=== PATIENT | male | born 1965 | race Hispanic/Latino ===

== ENCOUNTER 2016-10-07 17:30 | Emergency (ER) | payer MEDICAID ==
[2016-10-07 17:30] VITALS: BMI 29.1
[2016-10-07] MEDS ORDERED: Albuterol 0.083% Inhal Sol (2.5 mg/3 mL) UD INH STA (17:56)
[2016-10-07] MEDS ORDERED: Albuterol 0.083% Inhal Sol (2.5 mg/3 mL) UD ONE (17:56)
--- NOTE | 2016-10-07 17:56 | C.PDOC ---
History Of Present Illness A 51 year old male presents to the emergency room with complaints of productive cough and chest tightness for 5 days. Patient has a history of Asthma but doesn' t have Asthma medications. Patient also notes back pain from excessive coughing. Patient denies any fever, chills, nausea, vomiting, diarrhea, or any other complaints. Time Seen by Provider: 10/07/16 17:50 Chief Complaint (Nursing): Flu-like Symptoms History Per: Patient History/Exam Limitations: no limitations Onset/Duration Of Symptoms: Days (5) Current Symptoms Are (Timing): Still Present Associated Symptoms: Cough (Productive), Chest Pain (Tightness). denies: Fever Preciptating Factors: None Severity: Mild Past Medical History Reviewed: Historical Data, Nursing Documentation, Vital Signs Vital Signs: Last Vital Signs Temp 98.7 F 10/07/16 17:36 Pulse 93 H 10/07/16 17:36 Resp 16 10/07/16 17:36 BP 120/84 10/07/16 17:36 Pulse Ox 99 10/07/16 18:11 - Medical History PMH: Asthma, Gastritis, Gall Bladder Disease, Hypercholesterolemia Denies: Chronic Kidney Disease Surgical History: Appendectomy, Cholecystectomy - [facility] Procedures LAPAROSCOPIC CHOLECYSTECTOMY (07/29/13) SERUM TRANSFUSION NEC (07/29/13) Family History: States: Unknown Family Hx - Social History Hx Tobacco Use: No Hx Alcohol Use: Yes Hx Substance Use: No - Immunization History Hx Tetanus Toxoid Vaccination: No Hx Influenza Vaccination: No Hx Pneumococcal Vaccination: No Review Of Systems Except As Marked, All Systems Reviewed And Found Negative. Constitutional: Negative for: Fever, Chills Cardiovascular: Positive for: Chest Pain (Tightness) Respiratory: Positive for: Cough (Productive cough) Gastrointestinal: Negative for: Nausea, Vomiting, Diarrhea Musculoskeletal: Positive for: Back Pain (From excessive coughing) Physical Exam - Physical Exam Appears: Well, Non-toxic Skin: Normal Color, Warm, Dry Head: Atraumatic, Normacephalic Eye(s): bilateral: Normal Inspection Ear(s): Bilateral: Normal Nose: Normal, No Discharge Oral Mucosa: Moist Throat: Normal, No Erythema, No Exudate Neck: Normal ROM, Supple Cardiovascular: Rhythm Regular Respiratory: Normal Breath Sounds, No Rales, No Rhonchi, No Wheezing Gastrointestinal/Abdominal: Soft, No Tenderness, No Guarding, No Rebound Back: Normal Inspection, No CVA Tenderness, No Vertebral Tenderness Extremity: Normal ROM, No Tenderness, No Pedal Edema, No Calf Tenderness, No Swelling Neurological/Psych: Oriented x3, Normal Speech ED Course And Treatment O2 Sat by Pulse Oximetry: 99 Pulse Ox Interpretation: Normal Progress Note: Will give patient Albuterol & Motrin. Reevaluation Time: 18:38 Reassessment Condition: Improved Disposition Counseled Patient/Family Regarding: Diagnosis, Need For Followup, Rx Given - Disposition Referrals: [facility] [Outside] [facility] [Other] Disposition: HOME/ ROUTINE Disposition Time: 18:38 Condition: IMPROVED Prescriptions: Naproxen 500 mg PO BID #30 tab Benzonatate [Tessalon Perles] 200 mg PO TID PRN #15 sgl PRN Reason: Cough Albuterol HFA [Ventolin HFA 90 mcg/actuation (8 g)] 1 puff IH Q4 #1 inhaler Azithromycin [Zithromax] 250 mg PO DAILY #6 tab Instructions: Acute Bronchitis (ED), Asthma (ED) - Clinical Impression Clinical Impression: Bronchitis, Asthma exacerbation - Scribe Statement The provider has reviewed the documentation as recorded by the Nette Valdez Provider Scribe Attestation: All medical record entries made by the Abigailibjanuary were at my direction and personally dictated by me. I have reviewed the chart and agree that the record accurately reflects my personal performance of the history, physical exam, medical decision making, and the department course for this patient. I have also personally directed, reviewed, and agree with the discharge instructions and disposition.
[2016-10-07 18:42] VITALS: BP 118/77; PULSE 81; RESP 20; TEMP 100.1; O2SAT 95
== END 2016-10-07 18:44 | disposition home or self-care (01) ==
LOC: C.ER 17:30
DX: J45.901 Unspecified asthma with (acute) exacerbation (principal)

== ENCOUNTER 2016-12-09 17:59 | Emergency (ER) | payer MEDICAID ==
[2016-12-09 17:59] VITALS: BMI 29.1
[2016-12-09 18:38] VITALS: BP 122/80; PULSE 65; RESP 16; TEMP 97.7; O2SAT 97
--- NOTE | 2016-12-09 19:20 | C.PDOC ---
History Of Present Illness 51 year old male complains of sore throat for 4 days and right shoulder pain for 2 days. patient states shoulder pain started after heavy lifting when moving couch up 2 flights of stairs. He took Aleve with mild relief. Denies fever, cough, ear pain, chest pain, SOB, numbness or weakness Time Seen by Provider: 12/09/16 19:12 Chief Complaint (Nursing): Upper Extremity Problem/Injury History Per: Patient History/Exam Limitations: no limitations Onset/Duration Of Symptoms: Days (4) Current Symptoms Are (Timing): Still Present Past Medical History Reviewed: Historical Data, Nursing Documentation, Vital Signs Vital Signs: Last Vital Signs Temp 97.7 F 12/09/16 18:36 Pulse 65 12/09/16 18:36 Resp 16 12/09/16 18:36 BP 122/80 12/09/16 18:36 Pulse Ox 97 12/09/16 19:21 - Medical History PMH: Asthma, Gastritis, Gall Bladder Disease, Hypercholesterolemia Surgical History: Appendectomy, Cholecystectomy - [facility] Procedures LAPAROSCOPIC CHOLECYSTECTOMY (07/29/13) SERUM TRANSFUSION NEC (07/29/13) Family History: States: Unknown Family Hx - Social History Hx Tobacco Use: No Hx Alcohol Use: Yes Hx Substance Use: No - Immunization History Hx Tetanus Toxoid Vaccination: No Hx Influenza Vaccination: No Hx Pneumococcal Vaccination: No Review Of Systems Constitutional: Negative for: Fever, Weakness, Malaise ENT: Positive for: Throat Pain. Negative for: Ear Pain, Nose Congestion Cardiovascular: Negative for: Chest Pain, Palpitations Respiratory: Negative for: Cough, Shortness of Breath Gastrointestinal: Negative for: Vomiting, Abdominal Pain, Diarrhea Musculoskeletal: Positive for: Shoulder Pain. Negative for: Back Pain Skin: Negative for: Rash, Bruising Neurological: Negative for: Headache, Dizziness Physical Exam - Physical Exam Appears: Non-toxic, No Acute Distress Skin: Warm, Dry, No Diaphoretic Head: Atraumatic, Normacephalic Eye(s): bilateral: Normal Inspection, PERRL, EOMI Ear(s): Bilateral: Normal (no erythema) Nose: Normal Oral Mucosa: Moist Lips: Normal Appearing Teeth: Normal Dentition Throat: Erythema, No Exudate, No Drooling, No Mass Neck: Normal ROM Chest: Symmetrical Cardiovascular: Rhythm Regular, No Murmur Respiratory: Normal Breath Sounds, No Wheezing Extremity: Other (Right shoulder: painful abduction, no deformity, no swelling) Pulses: Right Radial: Normal Neurological/Psych: Oriented x3, Normal Speech ED Course And Treatment O2 Sat by Pulse Oximetry: 97 Medical Decision Making Medical Decision Making: Impression: sore throat and shoulder pain Plan: Ketorolac IM and Arm sling Reassess: Patient remained afebrile in no acute distress. Discussed results with patient. Rx given. Patient instructed to follow up with primary doctor or clinic, may return to if symptoms worsen or new symptoms arise. Disposition Counseled Patient/Family Regarding: Need For Followup, Rx Given - Disposition Referrals: Chandni Solano APN [Advanced Practice Nurse] - Disposition: HOME/ ROUTINE Disposition Time: 19:45 Condition: STABLE Additional Instructions: Vaya a toscano mdico o la clnica en 1-3 gaming sin falta, para mas evaluacin. [place] los medicamentos lucy indicado. Volver a la art de emergencia en cualquier momento si los sntomas persisten o empeoran. Prescriptions: Amoxicillin [Amoxil 500 mg Cap] 500 mg PO BID #14 cap Ibuprofen [Motrin] 600 mg PO Q8 #30 tab Instructions: Pharyngitis (ED), Shoulder Sprain (ED) Print Language: [place] ISLANDER - POA Present On Arrival: None - Clinical Impression Clinical Impression: Shoulder sprain, Pharyngitis - PA / [employer] REPRESENTATIVE / Resident Statement MD/DO has reviewed & agrees with the documentation as recorded.
== END 2016-12-09 19:31 | disposition home or self-care (01) ==
LOC: C.ER 17:59
DX: J02.9 Acute pharyngitis, unspecified (principal); S43.401A Unspecified sprain of right shoulder joint, initial encounter; X50.0XXA Overexertion from strenuous movement or load, initial encounter

== ENCOUNTER 2017-04-30 15:44 | Emergency (ER) | payer MEDICAID ==
[2017-04-30 15:44] VITALS: BMI 29.1
[2017-04-30 15:52] VITALS: BP 123/81; PULSE 71; RESP 18; TEMP 97.9; O2SAT 96
--- NOTE | 2017-04-30 16:04 | C.PDOC ---
History Of Present Illness 51 y/o male with PMHx OF Asthma presents to ED with complaints of fever, cough, throat pain and shortness of breath for 1 week. Patient also complaints of onset itchiness and redness with some discharge to eyes. Patient denies nausea, vomiting, chest pain or any other complaints at this time. Time Seen by Provider: 04/30/17 15:57 Chief Complaint (Nursing): Shortness Of Breath History Per: Patient History/Exam Limitations: no limitations Onset/Duration Of Symptoms: Days Current Symptoms Are (Timing): Still Present Location Of Pain: Throat Associated Symptoms: Fever, Cough, Nasal Congestion Past Medical History Reviewed: Historical Data, Nursing Documentation, Vital Signs Vital Signs: Last Vital Signs Temp 97.9 F 04/30/17 15:48 Pulse 71 04/30/17 15:48 Resp 18 04/30/17 15:48 BP 123/81 04/30/17 15:48 Pulse Ox 96 04/30/17 16:13 - Medical History PMH: Asthma, Gastritis, Gall Bladder Disease, Hypercholesterolemia, Hypothyroidism Surgical History: Appendectomy, Cholecystectomy - [facility] Procedures LAPAROSCOPIC CHOLECYSTECTOMY (07/29/13) SERUM TRANSFUSION NEC (07/29/13) Family History: States: No Known Family Hx - Social History Hx Tobacco Use: No Hx Alcohol Use: Yes Hx Substance Use: No - Immunization History Hx Tetanus Toxoid Vaccination: No Hx Influenza Vaccination: No Hx Pneumococcal Vaccination: No Review Of Systems Constitutional: Positive for: Fever ENT: Positive for: Nose Congestion, Throat Pain Cardiovascular: Negative for: Chest Pain Respiratory: Positive for: Cough, Shortness of Breath Gastrointestinal: Negative for: Nausea, Vomiting Skin: Negative for: Rash Physical Exam - Physical Exam Appears: Non-toxic, No Acute Distress Skin: Normal Color, Warm, Dry, No Rash Head: Atraumatic, Normacephalic Eye(s): bilateral: PERRL, EOMI, Other (Conjuctiva erythema L>R) Ear(s): Bilateral: Normal Nose: Normal, Other (congested nose) Oral Mucosa: Moist Throat: Normal, No Erythema, No Exudate, No Drooling, No Mass Neck: Normal ROM, Supple Cardiovascular: Rhythm Regular Respiratory: Normal Breath Sounds, No Rales, No Rhonchi, No Wheezing Extremity: Normal ROM, No Pedal Edema Neurological/Psych: Oriented x3 ED Course And Treatment O2 Sat by Pulse Oximetry: 96 (RA) Pulse Ox Interpretation: Normal Progress Note: Patient has no fever appears well in no distress. Symptoms c.w URI and no clinical signs of pneumonia. Will treat Zithromax, Rx was given. Disposition Counseled Patient/Family Regarding: Diagnosis, Need For Followup, Rx Given - Disposition Referrals: [facility] [Outside] Disposition: HOME/ ROUTINE Disposition Time: 16:35 Condition: STABLE Additional Instructions: Usted tiene carlos infeccin respiratoria superior. Wagon Wheel Tylenol o Motrin alternando cada 4-6 horas para Fever 100.4F o superior. Descansa y bonnie muchos lquidos. Puede usar un humidificador de vapor fresco o un vaporizador en la habitacin. Intente moriah el antihistamnico (Claritin, Hope, Zyrtec), descongestivo o medicamento para la tos segn sea necesario cada 6 a 8 horas. Buddy un seguimiento con toscano mdico o clnica principal en 1 semana para carlos evaluacin ms detallada. Prescriptions: Albuterol HFA [Ventolin HFA 90 mcg/actuation (8 g)] 1 puff IH Q4 #1 puff Instructions: Upper Respiratory Infection (ED), Conjunctivitis (ED) Forms: [facility] (Turkmen), Work Excuse Print Language: DIVEHI - POA Present On Arrival: None - Clinical Impression Clinical Impression: Upper respiratory infection, Conjunctivitis - PA / [employer]PER[employer] / Resident Statement MD/DO has reviewed & agrees with the documentation as recorded. - Scribe Statement The provider has reviewed the documentation as recorded by the Abigailibjanuary Diaz All medical record entries made by the Abigailibjanuary were at my direction and personally dictated by me. I have reviewed the chart and agree that the record accurately reflects my personal performance of the history, physical exam, medical decision making, and the department course for this patient. I have also personally directed, reviewed, and agree with the discharge instructions and disposition.
== END 2017-04-30 16:35 | disposition home or self-care (01) ==
LOC: C.ER 15:44
DX: H10.9 Unspecified conjunctivitis (principal); J06.9 Acute upper respiratory infection, unspecified; E03.9 Hypothyroidism, unspecified; E78.00 Pure hypercholesterolemia, unspecified

== ENCOUNTER 2018-07-26 19:47 | Emergency (ER) | payer SELFPAY ==
[2018-07-26 19:47] VITALS: BMI 29.1
[2018-07-26] MEDS ORDERED: Sodium Chloride 0.9% 1,000 ML IV ONE ×2 (20:04→20:40)
--- NOTE | 2018-07-26 20:04 | C.PDOC ---
History Of Present Illness 52 year old male presents to the ED c/o right sided chest wall pain that started while he was driving 1 hour CAR FERRI[employer]. Patient states his pain is sharp, stabbing 7/10. Patient reports he at some orange chicken today at lunch. Patient denies fever, chills, nausea, vomit, diarrhea, back pain, rash, injury, fall, trauma, SOB. Time Seen by Provider: 07/26/18 20:03 Chief Complaint (Nursing): Chest Pain History Per: Patient History/Exam Limitations: no limitations Onset/Duration Of Symptoms: Hrs (1) Current Symptoms Are (Timing): Still Present Context: Food Pain Scale Rating Of: 7 Quality: Sharp Recent travel outside of the [place]: No Additional History Per: Patient Past Medical History Reviewed: Historical Data, Nursing Documentation, Vital Signs - Medical History PMH: Asthma, Gastritis, Gall Bladder Disease, Hypercholesterolemia, Hypothyroidism Denies: Chronic Kidney Disease Surgical History: Appendectomy, Cholecystectomy - [facility] Procedures LAPAROSCOPIC CHOLECYSTECTOMY (07/29/13) SERUM TRANSFUSION NEC (07/29/13) Family History: States: Unknown Family Hx - Social History Hx Tobacco Use: No Hx Alcohol Use: Yes Hx Substance Use: No - Immunization History Hx Tetanus Toxoid Vaccination: No Hx Influenza Vaccination: No Hx Pneumococcal Vaccination: No Review Of Systems Constitutional: Negative for: Fever, Chills Eyes: Negative for: Vision Change Cardiovascular: Positive for: Chest Pain. Negative for: Palpitations Respiratory: Negative for: Cough, Shortness of Breath Gastrointestinal: Negative for: Nausea, Vomiting, Abdominal Pain Skin: Negative for: Rash Neurological: Negative for: Weakness, Numbness, Headache, Dizziness Physical Exam - Physical Exam Appears: Non-toxic, In Acute Distress Skin: Warm, Dry Head: Normacephalic Eye(s): bilateral: Normal Inspection Oral Mucosa: Moist Neck: Supple Chest: Symmetrical Cardiovascular: Rhythm Regular Respiratory: No Rales, No Rhonchi, No Wheezing Gastrointestinal/Abdominal: Bowel Sounds (decreased), Soft, Tenderness (RUQ), Guarding, No Rebound Extremity: Bilateral: Atraumatic, Normal Color And Temperature, Normal ROM Neurological/Psych: Oriented x3, Normal Speech, Normal Cognition Gait: Steady ED Course And Treatment - Laboratory Results Result Diagrams: 07/26/18 20:09 07/26/18 20:09 ECG: Interpreted By Me ECG Rhythm: Sinus Rhythm (74), Nonspecific Changes O2 Sat by Pulse Oximetry: 98 (ON RA) Pulse Ox Interpretation: Normal - Radiology CXR Interpretation: Yes: Infiltrates (b/l). No: Fracture, Cardiomegaly, Pnemothorax - CT Scan/US CT abd/pelvis Other Rad Studies (CT/US): Read By Radiologist, Radiology Report Reviewed CT/US Interpretation: CT SCAN OF THE ABDOMEN AND PELVIS WITH CONTRAST. CLINICAL HISTORY: Abdominal pain. TECHNIQUE: Multiple axial and coronal CT images were obtained through the abdomen and pelvis after administration of intravenous contrast material. COMMENTS: Mild right pleural effusion. Passive atelectatic airspace disease in the right lower lobe. Bilateral basilar atelectatic airspace disease of the lungs. Bilateral fat containing inguinal hernias without incarceration. Cholecystectomy. Mild prostatomegaly. Mild diffuse thickening of the wall of the bladder. Mild amount of fecal residue in the large bowels. 1.5 cm left renal cyst. The liver is of uniform attenuation without mass or defect. There is no intra or extrahepatic biliary ductal dilatat ion. The spleen is normal. The gallbladder is surgically absent. The pancreas is of normal contour and attenuation characteristics. There is no evidence of adrenal mass. Both kidneys demonstrate prompt and equal nephrograms. The kidneys are normal in size, shape and configuration. There is no evidence of renal or ureteral mass. No renal or ureteral calculi are identified. There is no hydroureter or hydronephrosis. No evidence for appendicitis. There is no bowel wall thickening. No evidence for small or large bowel obstruction. There is no evidence of abdominal ascites or lymphadenopathy. There is no evidence of intrinsic or extrinsic bladder mass. There is no pelvic ascites or lymphadenop athy. Images of the lung bases show no evidence of pleural or parenchymal mass. There are no pleural effusions. The bony structures are free of lytic or blastic lesions. IMPRESSION: Mild right pleural effusion. Passive atelectatic airspace disease in the right lower lobe. Bilateral basilar atelectatic airspace disease of the lungs. Bilateral fat containing inguinal hernias without incarceration. Cholecystectomy. Mild prostatomegaly. Mild diffuse thickening of the wall of the bladder. Mild amount of fecal residue in the large bowels. Thank you for your kind referral of this patient. . Electronically signed on Jul 27, 2018 2:18:31 AM EST by: Mason Samuel M.D., Certified by KAILA, MSK, Neuroradiology. Progress Note: Plan: - Labs. - CXR. - Protonix 40 mg IVP. - IV fluids. - Toradol 30 mg IVP. - Zofran 4 mg IVP. - UA Reevaluation Time: 02:22 Reassessment Condition: Improved Medical Decision Making Medical Decision Making: Upon provider reevaluation patient is feeling better, is medically stable, and requires no further treatment in the ED at this time. Patient will be discharged home with Rx for miralax and tramadol. Counseling was provided and all questions were answered regarding diagnosis and need for follow up with the referred clinic. There is agreement to discharge plan. Return if symptoms persist or worsen. Disposition Counseled Patient/Family Regarding: Studies Performed, Diagnosis, Need For Followup, Rx Given - Disposition Referrals: [facility] [Outside] [facility] [Outside] Disposition: HOME/ ROUTINE Disposition Time: 20:04 Condition: FAIR Additional Instructions: Please return if symptoms recur Prescriptions: Polyethylene Glycol 3350 [Miralax] 17 gm PO DAILY #270 ml traMADol [Ultram] 50 mg PO TID PRN #15 tab PRN Reason: Pain, Severe (8-10) Instructions: Colic (DC), Constipation, Adult (DC) Forms: [facility] (Serbian) Print Language: PANAMANIAN - Clinical Impression Clinical Impression: Abdominal pain, Constipation - Scribe Statement The provider has reviewed the documentation as recorded by the Scribe Clyde Melchor All medical record entries made by the Scribe were at my direction and personally dictated by me. I have reviewed the chart and agree that the record accurately reflects my personal performance of the history, physical exam, medical decision making, and the department course for this patient. I have also personally directed, reviewed, and agree with the discharge instructions and disposition.
[2018-07-26 20:12] LABS: BASO # 0.1 K/uL (0.0-0.2); BASO % 1.3 % (0.0-2.0); EOS # 0.3 K/uL (0.0-0.7); EOS % 3.6 % (0.0-4.0); LYMPH # 3.6 K/uL (1.0-4.3); LYMPH % 44.8 % (20.0-40.0); MEAN CELL VOLUME 83.1 fL (80.0-94.0); MEAN CORPUSCULAR HEMOGLOBIN 27.8 pg (27.0-31.0); MEAN CORPUSCULAR HGB CONC 33.4 g/dL (33.0-37.0); MEAN PLATELET VOLUME 8.5 fL (7.2-11.7); MONO # 0.6 K/uL (0.0-0.8); MONO % 7.9 % (0.0-10.0); NEUT # 3.4 K/uL (1.8-7.0); NEUT % 42.4 % (50.0-75.0); NRBC % 0.1 % (0.0-2.0); RBC 5.26 Mil/uL (4.40-5.90)
[2018-07-26] MEDS ORDERED: Sodium Chloride 0.9% 1,000 ML ONE (20:13)
[2018-07-26 20:15] LABS: HEMOGLOBIN 14.6 g/dL (12.0-18.0)
[2018-07-26 20:24] LABS: INR 1.1; PROTHROMBIN TIME 11.5 SECONDS (9.7-12.2)
[2018-07-26 20:35] LABS: ALB/GLOB RATIO 1.2 (1.0-2.1); ALT/SGPT 31 U/L (21-72); AST/SGOT 31 U/L (17-59); BLOOD UREA NITROGEN 19 mg/dL (9-20); CALCIUM 9.3 mg/dl (8.6-10.4); GFR NON-AFRICAN AMERICAN > 60; LIPASE 87 U/L (23-300)
[2018-07-26 22:43] LABS: URINE BILIRUBIN NEGATIVE (NEGATIVE); URINE BLOOD NEGATIVE (NEGATIVE); URINE CLARITY Clear (Clear); URINE COLOR Yellow (YELLOW); URINE GLUCOSE (UA) NORMAL (Normal); URINE LEUKOCYTE ESTERASE NEG Leu/uL (Negative); URINE PROTEIN NEGATIVE (NEGATIVE); URINE UROBILINOGEN NORMAL mg/dL (0.2-1.0)
[2018-07-26] MEDS ORDERED: Iodixanol 320 MG/ML 100 ML BOTTLE IV ONE (23:00)
[2018-07-27 02:33] VITALS: BP 121/77; PULSE 62; RESP 18; TEMP 98.2; O2SAT 97
--- NOTE | 2018-07-27 08:38 | RAD ---
Date of service: 07/26/2018 HISTORY: abd pain COMPARISON: None available. FINDINGS: LUNGS: No acute infiltrate bilaterally. There is crowding of the bronchovascular markings at the bilateral bases due to limited inspiratory volume. PLEURA: No significant pleural effusion identified, no pneumothorax apparent. CARDIOVASCULAR: No aortic atherosclerotic calcification present. Normal cardiac size. No pulmonary vascular congestion. OSSEOUS STRUCTURES: No significant abnormalities. VISUALIZED UPPER ABDOMEN: Normal. OTHER FINDINGS: None. IMPRESSION: Some limited inspiratory volume however no infiltrates, pleural effusion or pulmonary vascular congestion is identified.
--- NOTE | 2018-07-27 09:03 | CT ---
CT abdomen and pelvis HISTORY: Right upper quadrant abdominal pain. COMPARISON: CT scan dated 06/14/2012 TECHNIQUE: Multiple contiguous axial images were performed through the abdomen and pelvis with the use of intravenous contrast. Subsequently, sagittal coronal reformatted images were obtained. This CT exam was performed using one or more of the following dose reduction techniques: Automated exposure control, adjustment of the mA and/or kV according to patient size, and/or use of iterative reconstruction technique. Findings: Small right pleural effusion. Adjacent consolidative opacification at the right lung base suggestive for infiltrate. Left basilar atelectasis/consolidation. No pleural or pericardial effusion. Prominent liver with diffuse decreased attenuation consistent with fatty infiltration. Prior cholecystectomy. Spleen is preserved. Splenule. Mild nodularity of the right adrenal gland. Left adrenal gland is grossly preserved. Pancreas is grossly preserved. Small hiatal hernia. Right kidney: Few scattered punctate low-attenuation subcentimeter foci throughout the right kidney, too small to adequately characterize. Left Kidney: Vague patchy area of ill-defined low attenuation seen at the level of the upper pole of the left kidney concerning for possible developing pyelonephritis. Clinical correlation. 1.5 centimeter partially exophytic low-attenuation lesion at the midpole of the left kidney demonstrating a Hounsfield unit attenuation of 86, indeterminate. Correlation with multiphasic contrast enhanced CT or MRI may be helpful for further evaluation if clinically indicated. Underdistended and or mildly thick-walled urinary bladder. Multiple calcified phleboliths in pelvis. Prominent prostate and seminal vesicles. Fecal retention in colon. Appendix grossly preserved. Surgical clips adjacent to the tip of the appendix. Small fat containing bilateral inguinal hernias. Few shotty para-aortic and inguinal lymph nodes. Few shotty mesenteric lymph nodes. Degenerative changes in the spine. Impression: 1. Vague patchy area of ill-defined low attenuation seen at the level of the upper pole of the left kidney concerning for possible developing pyelonephritis. Clinical correlation. 2. 1.5 centimeter partially exophytic low-attenuation lesion at the midpole of the left kidney demonstrating a Hounsfield unit attenuation of 86, indeterminate. Correlation with multiphasic contrast enhanced CT or MRI may be helpful for further evaluation if clinically indicated. 3. Small right pleural effusion. Adjacent consolidative opacification at the right lung base suggestive for infiltrate. 4. Prominent liver with diffuse decreased attenuation consistent with fatty infiltration. 5. Prior cholecystectomy. 6. Few scattered punctate low-attenuation subcentimeter foci throughout the right kidney, too small to adequately characterize. 7. Underdistended and or mildly thick-walled urinary bladder. 8. Prominent prostate and seminal vesicles. 9. Small fat containing bilateral inguinal hernias. A preliminary report was generated at 2:18 a.m. on 07/27/[address] Mason Samuel from [facility]. Please note this case was placed in the PA review folder.
== END 2018-07-27 03:01 | disposition home or self-care (01) ==
LOC: C.ER 19:47
DX: K59.00 Constipation, unspecified (principal); R10.11 Right upper quadrant pain
CPT/HCPCS: 71045; 74177; 80053; 81001; 83690; 84484; 85025; 85610; 85730; 96361; 96374; 96375; 99285; C9113; J1885; J2405; J7030; Q9967

== ENCOUNTER 2018-08-20 12:54 | Emergency (ER) | payer BC ==
[2018-08-20 12:54] VITALS: BMI 29.1
[2018-08-20 13:22] VITALS: O2SAT 99
--- NOTE | 2018-08-20 14:44 | CT ---
Date of service: 08/20/2018 PROCEDURE: CT HEAD WITHOUT CONTRAST. HISTORY: s/p trauma to forehead - r/o ICH and fx COMPARISON: None available TECHNIQUE: Axial computed tomography images were obtained through the head/brain without intravenous contrast. Radiation dose: Total exam DLP = 980.9 mGy-cm. This CT exam was performed using one or more of the following dose reduction techniques: Automated exposure control, adjustment of the mA and/or kV according to patient size, and/or use of iterative reconstruction technique. FINDINGS: HEMORRHAGE: No intracranial hemorrhage. BRAIN: No mass effect or edema. No atrophy or chronic microvascular ischemic changes. VENTRICLES: No hydrocephalus. CALVARIUM: Unremarkable. PARANASAL SINUSES: Unremarkable as visualized. No significant inflammatory changes. MASTOID AIR CELLS: Unremarkable as visualized. No inflammatory changes. OTHER FINDINGS: None. IMPRESSION: No acute intracranial pathology identified.
[2018-08-20 15:20] VITALS: BP 131/79; PULSE 67; RESP 15; TEMP 97.9
--- NOTE | 2018-08-20 16:48 | C.PDOC ---
History Of Present Illness 52 y/o male presents to the ED for evaluation of head injury sustained earlier today. Patient states he walked into a metal bar while at work. He is now complaining of pain to his forehead. There was no LOC. He denies any blurry or double vision, nausea, vomiting, numbness, weakness, or changes in speech. Time Seen by Provider: 08/20/18 13:23 Chief Complaint (Nursing): Trauma History Per: Patient History/Exam Limitations: no limitations Injury Occurred (Timing): Just Before Arrival Onset/Duration Of Symptoms: Mins Loss Of Consciousness: No Past Medical History Reviewed: Historical Data, Nursing Documentation, Vital Signs Vital Signs: Last Vital Signs Temp 97.9 F 08/20/18 15:19 Pulse 67 08/20/18 15:19 Resp 15 08/20/18 15:19 BP 131/79 08/20/18 15:19 Pulse Ox 99 08/20/18 15:19 - Medical History PMH: Asthma, Gastritis, Gall Bladder Disease, Hypercholesterolemia, Hypothyroidism Denies: Chronic Kidney Disease Surgical History: Appendectomy, Cholecystectomy - [facility] Procedures LAPAROSCOPIC CHOLECYSTECTOMY (07/29/13) SERUM TRANSFUSION NEC (07/29/13) Family History: States: Unknown Family Hx - Social History Hx Tobacco Use: No Hx Alcohol Use: Yes Hx Substance Use: No - Immunization History Hx Tetanus Toxoid Vaccination: No Hx Influenza Vaccination: No Hx Pneumococcal Vaccination: No Review Of Systems Except As Marked, All Systems Reviewed And Found Negative. Constitutional: Negative for: Fever Eyes: Negative for: Vision Change Cardiovascular: Negative for: Chest Pain Respiratory: Negative for: Shortness of Breath Gastrointestinal: Negative for: Nausea, Vomiting Musculoskeletal: Negative for: Neck Pain, Back Pain Skin: Negative for: Lesions Neurological: Positive for: Headache (to forehead). Negative for: Weakness, Numbness, Change in Speech, Confusion, Dizziness Physical Exam - Physical Exam Appears: Non-toxic, No Acute Distress Skin: Warm, Dry Head: Normacephalic, Other (Small contusion to left forehead) Eye(s): bilateral: Normal Inspection, PERRL, EOMI Oral Mucosa: Moist Neck: Normal ROM Chest: Symmetrical Cardiovascular: Rhythm Regular, No Murmur Respiratory: Normal Breath Sounds, No Rales, No Rhonchi, No Wheezing Gastrointestinal/Abdominal: Soft, No Tenderness, No Distention Extremity: Bilateral: Atraumatic, Normal Color And Temperature, Normal ROM Neurological/Psych: Oriented x3, Normal Speech, Normal Cognition, Normal Cranial Nerves, Normal Motor, Normal Sensation, Other (No focal deficits) Gait: Steady ED Course And Treatment O2 Sat by Pulse Oximetry: 99 (RA) Pulse Ox Interpretation: Normal - CT Scan/US CT Head Other Rad Studies (CT/US): Read By Radiologist, Radiology Report Reviewed CT/US Interpretation: Accession No. : [id number]. Patient Name / ID : YESI RAYGOZA R / [id number]. Exam Date : 08/20/2018 14:28:15 ( Approved ). Study Comment : Sex / Age : M / 52Y. Creator : Zara Mcdermott. Dictator : Nida Cedeno MD. Pipe Line Repairer : Detention Officer : Nida Cedeno MD. Approver2 : Report Date : 08/20/2018 14:36:29. My Comment : . Date of service: 08/20/2018. PROCEDURE: CT HEAD WITHOUT CONTRAST. HISTORY: s/p trauma to forehead - r/o ICH and fx. COMPARISON: None available. TECHNIQUE: Axial computed tomography images were obtained through the head/brain without intravenous contrast. Radiation dose: Total exam DLP = 980. 9 mGy-cm. This CT exam was performed using one or more of the following dose reduction techniques: Automated exposure control, adjustment of the mA and/or kV according to patient size, and/or use of iterative reconstruction technique. FINDINGS: HEMORRHAGE: No intracranial hemorrhage. BRAIN: No mass effect or edema. No atrophy or chronic microvascular ischemic changes. VENTRICLES: No hydrocephalus. CALVARIUM: Unremarkable. PARANASAL SINUSES: Unremarkable as visualized. No significant inflammatory changes. MASTOID AIR CELLS: Unremarkable as visualized. No inflammatory changes. OTHER FINDINGS: None. IMPRESSION: No acute intracranial pathology identified. Medical Decision Making Medical Decision Making: Impression: Head trauma Plan: * Head CT CT negative. Patient remains AAOx3, in no acute distress, ambulatory in the ED with steady gait. Plan is to discharge patient home, advised to follow up with PMD. Disposition Counseled Patient/Family Regarding: Diagnosis, Need For Followup - Disposition Referrals: Rudy Shook, [Non-Staff] - Disposition: HOME/ ROUTINE Disposition Time: 14:55 Condition: GOOD Additional Instructions: IDALMIS HANSEN, thank you for letting us take care of you today. The emergency medical care you received today was directed at your acute symptoms. If you were prescribed any medication, please fill it and take as directed. It may take several days for your symptoms to resolve. Return to the Emergency Department if your symptoms worsen, do not improve, or if you have any other problems. Please contact your doctor or call one of the physicians/clinics you have been referred to that are listed on the Patient Visit Information form that is included in your discharge packet. Bring any paperwork you were given at discharge with you along with any medications you are taking to your follow up visit. Our treatment cannot replace ongoing medical care by a primary care provider outside of the emergency department. Thank you for allowing the [facility] team to be part of your care today. Follow up with your primary care doctor in 2-3 days for re-evaluation and further management. Instructions: Minor Head Injury (DC) Forms: [facility] (Greek), Work Excuse - Clinical Impression Clinical Impression: Head contusion - Scribe Statement The provider has reviewed the documentation as recorded by the Nette Thompson Provider Attestation: All medical record entries made by the Abigailibjanuary were at my direction and personally dictated by me. I have reviewed the chart and agree that the record accurately reflects my personal performance of the history, physical exam, medical decision making, and the department course for this patient. I have also personally directed, reviewed, and agree with the discharge instructions and disposition.
== END 2018-08-20 15:22 | disposition home or self-care (01) ==
LOC: C.ER 12:54
DX: S00.93XA Contusion of unspecified part of head, initial encounter (principal); W22.8XXA Striking against or struck by other objects, initial encounter; Y99.0 Civilian activity done for income or pay; E78.00 Pure hypercholesterolemia, unspecified; E03.9 Hypothyroidism, unspecified